=== PATIENT | male | born 1980 | race Caucasian/White ===

== ENCOUNTER → 2021-06-24 15:28 | Outpatient (CLI) | payer OTHER, SELFPAY ==
--- NOTE | ~2021-06-24 | XR_ITS ---
EXAMINATION: XR wrist RT min 3V DATE: 06/24/2021 15:51 INDICATION: Right wrist pain TECHNIQUE: Posteroanterior, ulnar deviation, oblique, and lateral views of the right wrist were obtai amarjit. COMPARISON: None available FINDINGS: There is no fracture, dislocation, or subluxation. The bones, soft tissues, and joint space s are normal. IMPRESSION: 1. No acute osseous abnormality. Reviewed, dictated and finalized at location F. MANAGER
--- NOTE | ~2021-06-24 | XR_ITS ---
EXAMINATION: XR wrist LT min 3V DATE: 06/24/2021 15:51 INDICATION: Left wrist pain TECHNIQUE: Posteroanterior, ulnar deviation, oblique, and lateral views of the left wrist were obtain ed. COMPARISON: None available FINDINGS: There is no fracture, dislocation, or subluxation. The bones, soft tissues, and joint space s are normal. IMPRESSION: 1. No acute osseous abnormality. Reviewed, dictated and finalized at location F. CARRIER
== END ==
PROVIDERS: PCP Family Medicine; Visit Provider Nurse Practitioner Family
DX: M25.531 Pain in right wrist (principal); M25.532 Pain in left wrist
CPT/HCPCS: 73110

== ENCOUNTER 2024-07-09 15:09 | Emergency (ER) | payer OTHER, SELFPAY ==
[2024-07-09 15:22] VITALS: BP 167/105; PULSE 77; RESP 16; TEMP 36.3; O2SAT 100
--- NOTE | 2024-07-09 15:25 | ED.URI ---
HPI - URI/Sore Throat General Chief Complaint: Upper Respiratory Infection Stated Complaint: Sinus/Congested/Fever Time Seen by Provider: 07/09/24 15:40 Source: patient and RN notes reviewed Mode of arrival: ambulatory Limitations: no limitations History of Present Illness HPI Narrative: 43-year-old male presents with concern for 2-3 day history of fever, cough, body aches, sweats and chills. Reports several members of his family had influenza a. Reports he has been taking TheraFlu, ibuprofen Tylenol. MD elicited complaint: fever and nasal congestion Related Data Allergies Allergy/AdvReac Type Severity Reaction Status Date / Time No Known Allergies Allergy Verified 07/09/24 15:23 Review of Systems Review of Systems: CONSTITUTIONAL: Reports malaise, chills, sweats, fever. EYES: Denies visual changes, redness, or discharge. ENT: Reports rhinorrhea, congestion CARDIOVASCULAR: Denies chest pain, palpitations, or edema. RESPIRATORY: Reports cough. Denies dyspnea. GASTROINTESTINAL: Denies abdominal pain, nausea, vomiting, diarrhea SKIN: Denies rash or itching. MUSCULOSKELETAL: Reports myalgia. NEUROLOGIC: Reports headache. All systems reviewed & are unremarkable except as noted in HPI and below PMFSH Comments At time of signature, agree with nursing past medical, surgical, social and family history. There is no relevant family history pertinent to the presenting complaint Exam Narrative: GENERAL: Nontoxic-appearing, well-nourished, and in no acute distress. HEAD: Normocephalic EYES: PERRLA, conjunctivae clear ENT: Nares clear, turbinates edematous and erythematous. Mucous membranes moist. TM pearly walton with dull light reflex bilaterally; no tragal tenderness. Oropharynx not erythematous without lesions. Tonsils not enlarged and without exudate, no drooling, no hoarseness, no trismus, uvula midline. NECK: Supple. No lymphadenopathy CHEST: Clear to auscultation, breath sounds equal. No wheezing, rhonchi, rales, or stridor. No respiratory distress, speaks in full sentences. HEART: Regular rate and rhythm. No murmur heard. SKIN: Warm, dry, no rash. NEURO: Alert and oriented x3. PSYCH: Normal mood and affect Course Course Emergency Course: Patient is aware of diagnosis, understands and agrees to treatment plan. Anticipatory guidance given. Patient agrees to follow-up as directed and is aware of reasons to seek care at the emergency department. Portions of this record may have been created with voice recognition software Level of Care: Express Care Visit Vital Signs Vital signs: Vital Signs Temperature 97.4 F L 07/09/24 15:22 Pulse Rate 77 07/09/24 15:22 Respiratory Rate 16 07/09/24 15:22 Blood Pressure 167/105 H 07/09/24 15:22 Pulse Oximetry 100 07/09/24 15:22 Oxygen Delivery Room Air 07/09/24 15:22 Temperature 97.4 F L 07/09/24 15:22 Pulse Rate 77 07/09/24 15:22 Respiratory Rate 16 07/09/24 15:22 Blood Pressure 167/105 H 07/09/24 15:22 Pulse Oximetry 100 07/09/24 15:22 Oxygen Delivery Room Air 07/09/24 15:22 Reviewed. MDM - URI/Sore Throat MDM Narrative Medical decision making narrative: Differential diagnosis considered: Peña virus, strep pharyngitis, allergic rhinitis, upper respiratory tract infection, sinusitis, rhinosinusitis, nasopharyngitis. viral pharyngitis, otitis media, otitis externa, pneumonia, bronchitis, viral cough syndrome, viral syndrome, and influenza. Exam findings show no acute concerns or changes; patient is non-toxic appearing and is in no distress. Patient is appropriate for outpatient treatment and follow-up. Lab Data Attestation: I reviewed the patient's lab results. Critical Care Time Critical Care Time Critical Care Time: No Discharge Plan Discharge Clinical Impression: Influenza A Patient Disposition: Home, Self-Care Condition: Stable Instructions: Influenza (ED) Additional Instructions: -Take strict precautions to prevent the spread of your virus. Be diligent about covering your cough (even when you are alone) and washing your hands frequently. -You may contagious until you have been symptom and/or fever free for 24 hours without fever reducing medicine -Alternate Ibuprofen and Tylenol for pain and fever relief (per package directions) -Drink plenty of fluid - drink fluid with electrolytes such as Gatorade or other oral re-hydration solution. Avoid caffeine, which can make dehydration worse. -Get plenty of rest to help your body heal. -Use a cool mist humidifier for chest and nasal congestion. -Eat RAW honey or use cough drops to ease throat discomfort -Do not smoke or expose children to secondhand smoke -Wash your hands frequently. -Please follow-up with your primary care doctor in the next 1-2 days if your symptoms do not improve. -If you have any worsening of symptoms or any other concerns please go to the ED immediately. -Please take medications as prescribed and continue taking your home medications as usual. Patient Language: Mohawk Prescriptions: New pseudoephedrine HCl [12 Hour Decongestant] 120 mg tablet extended release 120 mg PO Q12H PRN (Reason: nasal congestion) Qty: 20 0RF ipratropium bromide 21 mcg (0.03 %) spray,non-aerosol 2 spray NASAL TID PRN (Reason: nasal drainage) Qty: 30 0RF Rx Instructions: administer into each nostril Follow-up/Referrals: PHYSICIAN,CIRCUIT MANAGER [Primary Care Provider] - Stand Alone Forms: Work/School Release IP Time of Disposition: 15:49
[2024-07-09 15:49] LABS: EDCOVIDSCREEN Negative (Negative); EDINFLUASCREEN Positive (Negative); EDINFLUBSCREEN Negative (Negative)
== END 2024-07-09 15:55 | disposition home or self-care (01) ==
PROVIDERS: Emergency Provider Nurse Practitioner
DX: J10.1 Influenza due to other identified influenza virus with other respiratory manifestations (principal); Z20.822 Contact with and (suspected) exposure to COVID-19; I10 Essential (primary) hypertension; J45.909 Unspecified asthma, uncomplicated
CPT/HCPCS: 87426; 87804; 99203; G0463

== ENCOUNTER 2024-12-04 11:33 | Outpatient (CLI) | payer OTHER, SELFPAY ==
--- OUTSIDE RECORDS SUMMARY | 2024-12-04 11:36 | XMS_ITS | Clinical Summary ---
Author Organization [facility] Address [address] [place] [address] Care Team Providers Care [employer] Assistant Manager Name Role Phone Unavailable Primary Care Provider Unavailabl e Source Comments [facility],non-owned Affiliates and Associated Physician Practices is amultiple site organization consisting of ambulatory clinics and hospital sitesin [place], [place] and [place]. This disclosure is being madepursuant to the Care Everywhere program and may not contain all information available regarding this patient. Last updated 18.[facility] [employer] Immunizations Immunization Administration Dates Next Due TDAP (7yrs+) 03/22/2017 Social History Tobacco Use Types Packs/Day Years Used Date Smoking Tobacco: Never Assessed Sex and Gender Information Value Date Recorded Sex Assigned at Not on file Legal Sex Male 2:53 PM CDT Gender Identity Not on file Sexual Orientation Not on file Plan of Treatment Health Maintenance Due Date Last Done Comments LIPID TESTING 1981 HIV SCREENING 1996 HEPATITIS C SCREENING 12/24/1999 HEPATITIS B VACCINE (1 of 3 - 19+ 3-dose series) 2000 COVID-19 VACCINE (2023-2 5 season) 2024 DEPRESSION SCREENING 06/04/2024 INFLUENZA VACCINE (Season Ended) 2025 DTAP/TDAP/TD VACCINES (2 - T d or Tdap) 03/22/2027 03/22/2017 ZOSTER VACCINE (1 of 2) 12/29/2031 HIB VACCINE Aged Out No longer eligi ble based on patient's age to complete this topic HPV VACCINE Aged Out No longer eligi ble based on patient's age to complete this topic MENINGOCOCCAL (Group B) VACC INE SHARED DECISION-MAKING Aged Out No longer eligibl e based on patient's age to complete this topic MENINGOCOCCAL GROUPS A/C/Y/W VACCINE Aged Out No longer eligible b ased on patient's age to complete this topic PNEUMOCOCCAL VACCINE Aged Out No long er eligible based on patient's age to complete this topic Insurance [employer]
--- OUTSIDE RECORDS SUMMARY | 2024-12-04 11:36 | XMS_ITS | Clinical Summary ---
Author Organization [facility] Address [facility] [place] [address] Care Team Providers Care Harm Reduction Worker Name Role Phone Unavailable Primary Care Provider Unavailabl e Social History Tobacco Use Types Packs/Day Years Used Date Smoking Tobacco: Never Assessed Sex and Gender Information Value Date Recorded Sex Assigned at Not on file Legal Sex Male 6:49 PM CDT Gender Identity Not on file Sexual Orientation Not on file Plan of Treatment Health Maintenance Due Date Last Done Comments Annual Physical 1984 Hepatitis C 12/29/1999 DTaP, Tdap and Td Vaccines ( 1 - Tdap) 2000 Hepatitis B Vaccines (1 of 3 - 19+ 3-dose series) 2000 COVID-19 Vaccine (2023-2 5 season) 2024 HPV Vaccines Aged Out No longer eligi ble based on patient's age to complete this topic Meningococcal B Vaccine Aged Out No l onger eligible based on patient's age to complete this topic Meningococcal Vaccine Aged Out No jayce nelson eligible based on patient's age to complete this topic Pneumococcal Vaccine: Pediat rics (0 to 5 Years) and At-Risk Patients (6 to 49 Years) Aged Out No longer eligible b ased on patient's age to complete this topic RSV Immunizations Under 20 Months Aged Out No longer eligible based on patient's age to complete this topic
[2024-12-04 12:10] LABS: Hematocrit 48.0 % (42.0-52.0); Hemoglobin 16.0 g/dL (14.0-18.0); Mean Corpuscular HGB Conc 33.3 g/dl (32-36); Mean Corpuscular Hemoglobin 29.5 pg (26-34); Mean Corpuscular Volume 88.6 fl (80-100); Platelet Count Result 212 k/mm3 (150-375); Red Blood Count 5.42 M/mm3 (4.6-6.20); White Blood Count 8.2 K/mm3 (4.5-10.0)
[2024-12-04 12:24] LABS: Alanine Aminotransferase 29 U/L (6-50); Albumin Level 4.8 g/dL (3.5-5.1); Alkaline Phosphatase 52 U/L (38-126); Anion Gap 10 mmol/L (4-12); Aspartate Amino Transferase 36 U/L (17-59); Bilirubin,Total 0.7 mg/dL (0.2-1.3); Blood Urea Nitrogen 14 mg/dL (9-20); CRP < 0.5 mg/dL (<1.0); Calcium 9.6 mg/dL (8.4-10.2); Carbon Dioxide 27 mmol/L (22-30); Chloride 102 mmol/L (98-107); Estimated Glomerular Filt Rate > 60; Glucose 104 mg/dL (65-110); Potassium 4.4 mmol/L (3.4-5.0); Sodium 139 mmol/L (137-145); Total Protein 8.6 g/dL (6.3-8.2)
[2024-12-04 12:58] LABS: Thyroid Stimulating Hormone Reflex 0.697 uIU/mL (0.465-4.68)
[2024-12-11 13:34] LABS: Gliadin AB, IgG <1.0 U/mL; Immunoglobulin A <5 mg/dL (47-310); TTG IGA AB <1.0 U/mL
== END 2024-12-04 11:34 | disposition home or self-care (01) ==
PROVIDERS: Visit Provider Nurse Practitioner
DX: R19.7 Diarrhea, unspecified (principal); K64.8 Other hemorrhoids
CPT/HCPCS: 36415; 80053; 82784; 84443; 85027; 85652; 86140

== ENCOUNTER 2024-12-06 09:47 | Outpatient (CLI) | payer OTHER, SELFPAY ==
--- OUTSIDE RECORDS SUMMARY | 2024-12-06 09:50 | XMS_ITS | Clinical Summary ---
Author Organization [facility] Address [facility] [place] [address] Care Team Providers Care Deck Molder Name Role Phone Unavailable Primary Care Provider [...] this topic Meningococcal Vaccine Aged Out No jacye nelson eligible based on patient's age to [...]
--- OUTSIDE RECORDS SUMMARY | 2024-12-06 09:50 | XMS_ITS | Clinical Summary ---
Author Organization [facility] Address [address] [place] [address] Care Team Providers Care Valve Mechanic Name Role Phone Unavailable Primary Care Provider Unavailabl e Source Comments [facility],non-owned Affiliates and Associated Physician Practices is amultiple site organization consisting of ambulatory clinics and hospital sitesin [place], [place], [place] and [place]. This disclosure is being madepursuant to the Care Everywhere program and may not contain all information available regarding this patient. Last updated 18.[facility] [employer] Immunizations Immunization Administration Dates Next Due TDAP [...]
[2024-12-06 14:13] LABS: Toxigenic C. Diff NEGATIVE (NEGATIVE)
[2024-12-12 16:22] LABS: Calprotectin, Stool. 176 mcg/g
== END 2024-12-06 09:48 | disposition home or self-care (01) ==
LOC: ANHLAB 09:48
PROVIDERS: Visit Provider Nurse Practitioner
DX: K64.8 Other hemorrhoids (principal); R19.7 Diarrhea, unspecified
CPT/HCPCS: 83993; 87045; 87177; 87209; 87269; 87324; 87427; 87449; 87493

== ENCOUNTER 2025-02-13 01:37 | Day surgery (SDC) | payer OTHER, SELFPAY ==
[2025-01-30 14:17] VITALS: BMI 26.9
--- OUTSIDE RECORDS SUMMARY | 2025-02-13 01:39 | XMS_ITS | Clinical Summary ---
Author Organization [facility] Address [address] [place] [address] Care Team Providers Care Soccer Commentator Name Role Phone Unavailable Primary Care Provider Unavailabl e Source Comments [facility],non-owned Affiliates and Associated Physician Practices is amultiple site organization consisting of ambulatory clinics and hospital sitesin [place], [place], [place] and [place]. This disclosure is being madepursuant to the Care Everywhere program and may not contain all information available regarding this patient. Last updated 18.[facility] Immunizations Immunization Administration Dates Next Due TDAP [...] of 3 - 19+ 3-dose series) 2000 HPV VACCINE (1 - 3-dose SCDM series) 2008 DEPRESSION SCREENING 06/04/2024 COVID-19 VACCINE (1 - 2023-2 5 season) 2025 INFLUENZA VACCINE (#1) 2025 DTAP/TDAP/TD VACCINES (2 - T d [...]
--- OUTSIDE RECORDS SUMMARY | 2025-02-13 01:39 | XMS_ITS | Clinical Summary ---
Author Organization [facility] Address [facility] [place] [address] Care Team Providers Care Chalk Tester Name Role Phone Unavailable Primary Care Provider [...] 3 - 19+ 3-dose series) 2000 HPV Vaccines (1 - 3-dose SCD M series) 2008 COVID-19 Vaccine ( - 2023-2 5 season) 2025 Meningococcal B Vaccine Aged Out No l [...]
[2025-02-13 12:51] VITALS: BP 145/93; PULSE 83; RESP 16; TEMP 36.7; O2SAT 100; BMI 25.9
[2025-02-13] MEDS: LACTATED RINGERS 1,000 ML 150 ML IV CONT (13:10)
--- NOTE | 2025-02-13 13:12 | WPDANESEPPF ---
Anes - Initial Pre Proc Eval Procedure: Operation Date: 02/13/25 14:00 Proposed Procedures p Diagnostic Colonoscopy - Suleman Diaz MD s [facility] Hemorrhoid Treatment - Suleman Diaz MD Date/Time: 02/13/25 13:12 Surgeon: Suleman Diaz MD Pre Op Diagnosis: Other hemorrhoids Patient Data Age: 44 Gender: M Height: 1.7 m Weight: 75 kg Last Vital Signs Temp 36.7 C 02/13/25 12:51 Pulse 83 02/13/25 12:51 Resp 16 02/13/25 12:51 BP 145/93 H 02/13/25 12:51 Pulse Ox 100 02/13/25 12:51 O2 Del Method Room Air 02/13/25 12:51 Allergies Allergy/AdvReac Type Severity Reaction Status Date / Time No Known Allergies Allergy Verified 02/13/25 12:49 Home Medications ?Medication ?Instructions ?Recorded ?Confirmed ?Type ipratropium bromide 21 mcg (0.03 2 spray intranasal TID PRN nasal 07/09/24 02/13/25 Rx %) nasal spray drainage #30 mL pseudoephedrine HCl 120 mg 120 mg PO Q12H PRN nasal 07/09/24 01/30/25 Rx tablet,extended release (12 Hour congestion #20 tabs Decongestant ER) dicyclomine 10 mg capsule 10 mg PO .every 6 hours #120 caps 12/04/24 02/13/25 Rx montelukast 10 mg tablet 10 mg PO DAILY 01/30/25 02/13/25 History Patient hx anesthesia problems: none Family hx anesthesia problems: none Results Review: All pre-operative results and documents have been reviewed as part of the pre-operative evaluation. FORMERLY [facility], [facility] Past Medical History Medical History Hypertension Asthma Social History Social History Smoking status: Unknown if ever smoked Alcohol intake: never Substance use: never Anes - Eval Final PreProcedure Day of Procedure 02/13/25 13:12 Patient weight: overweight Heart: regular rate and rhythm Lungs: clear to auscultation Airway: Mallampati scale class II Neurological: alert and oriented Last oral intake: >/= 8 hours ASA classification: II Emergent: no Anesthetic plan: proceed Anesthesia type and monitoring: general GIVS and standard monitoring Results Review: All pre-operative results and documents have been reviewed as part of the pre-operative evaluation. Informed Consent: The patient's anesthetic plan and its attendant risks and benefits were discussed with the patient/family/POA. Questions were solicited and answers provided to the satisfaction of the patient/family/POA.
--- NOTE | 2025-02-13 13:16 | PM.HPGS ---
History of Present Illness History of Present Illness Consent: Risks, benefits, and alternatives have been discussed and questions answered. Patient agrees to proceed with procedure. Chief complaint: Other hemorrhoids Narrative: Yunior Drake is a 44 year old male with loose stools for 4 months, also noted blood in stool but improved, had colonoscopy 2016 Review of Systems Review of Systems: All systems reviewed & are unremarkable except as noted in HPI and below PMFSH Past Medical History Medical History Hypertension Asthma Social History Social History Smoking status: Unknown if ever smoked Alcohol intake: never Substance use: never Meds Home Medications and Allergies Home Medications ?Medication ?Instructions ?Recorded ?Confirmed ?Type ipratropium bromide 21 mcg (0.03 2 spray intranasal TID PRN nasal 07/09/24 02/13/25 Rx %) nasal spray drainage #30 mL pseudoephedrine HCl 120 mg 120 mg PO Q12H PRN nasal 07/09/24 01/30/25 Rx tablet,extended release (12 Hour congestion #20 tabs Decongestant ER) dicyclomine 10 mg capsule 10 mg PO .every 6 hours #120 caps 12/04/24 02/13/25 Rx montelukast 10 mg tablet 10 mg PO DAILY 01/30/25 02/13/25 History Allergies Allergy/AdvReac Type Severity Reaction Status Date / Time No Known Allergies Allergy Verified 02/13/25 12:49 Vital Signs Vital Signs - 24 hr 02/13/25 12:51 Temperature 98.1 F Pulse Rate 83 Respiratory Rate 16 Blood Pressure 145/93 H Pulse Oximetry 100 Oxygen Delivery Room Air Exam Const: General: comfortable and no acute distress HENMT: Face/Nose/Sinus: Normal nares present Eyes: General: appearance normal, both eyes and all related structures Neck: Neck: no JVD Resp: Auscultation: clear to auscultation bilaterally Cardio: Rate: regular rate Rhythm: regular rhythm GI: Inspection: non-distended GI Palp: Yes Soft to palpation Skin: General skin exam: normal color Neuro: General: gait normal Speech: normal speech Extrem: General: normal to inspection Psych: Mental Status: mental status grossly normal Assessment and Plan Assessment and plan (1) Diarrhea: Code(s): R19.7 - Diarrhea, unspecified Status: Acute Assessment and Plan: colonoscopy (2) Rectal bleeding: Code(s): K62.5 - Hemorrhage of anus and rectum Status: Acute Assessment and Plan: if I see internal hemorrhoids then will consider IRC treatment
--- NOTE | 2025-02-13 13:29 | S_PTH ---
PATIENT: Yunior Drake LOC: [facility]T [facility]#:[id number] AGE/SX: 44/M ROOM: RE02/13/[address]: Suleman Diaz MD : 1980 BED: DIS: 02/13/2025 SPEC #: [id number] RECD: 02/13/25 14:15 STATUS: ANGELI REAmy #: [id number] SOILA: 02/13/25 13:[address]: Suleman Diaz DEPT: [facility] Surgical RECD BY: Faviola Salinas ENTERED: 02/13/25 14:16 SP TYPE: Surgical OTHR DR: HOPS FARMWORKER PHYSICIAN Tissues: A - Colon Polypectomy B - Colon Biopsy Procedures: Hematoxylin and Eosin Stain Gross and Microscopic Level 4
[2025-02-13 13:30] VITALS: BP 138/91; PULSE 89; RESP 18; O2SAT 99
[2025-02-13 13:40] VITALS: BP 135/87; PULSE 77; RESP 18; O2SAT 98
[2025-02-13 13:50] VITALS: BP 138/87; PULSE 64; RESP 15; O2SAT 99
== END 2025-02-13 14:00 | disposition home or self-care (01) ==
PROVIDERS: Referring Provider Nurse Practitioner; Visit Provider Internal Medicine Gastroenterology
PROC: 0DJD8ZZ Inspection of Lower Intestinal Tract, Via Natural or Artificial Opening Endoscopic (ICD-10-PCS; CPT 45378; principal; 2025-02-13 14:00)
DX: K52.832 Lymphocytic colitis (principal); K63.5 Polyp of colon; I10 Essential (primary) hypertension; J45.909 Unspecified asthma, uncomplicated
CPT/HCPCS: 45380; 88305; J2704; J7120